=== PATIENT | male | born 1970 | race Caucasian/White ===

== ENCOUNTER → 2018-11-30 | Outpatient (CLI) | payer OTHER ==
--- NOTE | 2018-11-30 15:13 | Diagnostic Imaging Report ---
EXAMINATION: Scrotal ultrasound CLINICAL INDICATION: Right testicular pain. COMPARISON: None. TECHNIQUE: Grayscale and color Doppler evaluation of the scrotum was performed in transverse and longitudinal planes. FINDINGS: The right testicle measures 5.1 x 2.6 x 4.1 cm. There are no masses or calcifications.. The right epididymis measures 2 x 1.3 x 2.8 cm. Multiple anechoic round lesion within the right epididymis, the largest of which measures 2.1 x 1.4 x 1.6 cm.. Small complex right hydrocele. No varicocele. There is normal flow to the right testicle, without evidence of torsion. The left testicle measures 5 x 2.6 x 3.2 cm. No masses or calcifications. The left epididymis measures 2.7 x 2.1 x 2 cm. Multiple round anechoic structures within the epididymis, the largest of which measures 2.5 x 1.3 cm.. Small complex left hydrocele. No varicocele. There is normal flow to the left testicle without evidence of torsion. The scrotum has a normal appearance, without focal lesions. Impression: Unremarkable sonographic appearance of the testes with arterial and venous flow within each testis. Bilateral epididymal head cysts versus spermatoceles. Bilateral mildly complex small hydroceles. Signed by: Dr. Mike Campos M.D. on 11/30/2018 3:09 PM
== END ==
LOC: US 13:30
PROVIDERS: ATTEND Family Medicine
DX: R10.30 Lower abdominal pain, unspecified (principal); N50.811 Right testicular pain
CPT/HCPCS: 76870; 93976